=== PATIENT | male | born 1955 ===

== ENCOUNTER → 2018-06-28 | Emergency (ER) | payer OTHER ==
[~2018-06-28] VITALS: Ht 167.6 cm; Wt 81.6 kg
[~2018-06-28] MED LIST: DOLOGESIC CAPSU1 CAP PO; PEPCID40 MG PO; SYMBICORT 16010.2 GM IH; TENORMIN50 M1; ZITHROMAX500 MG PO
== END | disposition home or self-care (01) ==
LOC: ER 00:50
DX: J98.01 Acute bronchospasm (principal); J06.9 Acute upper respiratory infection, unspecified